=== PATIENT | male | born 1985 | race Asian ===

== ENCOUNTER 2024-05-19 11:52 | Emergency (ER) | payer OTHER ==
[~2024-05-19] VITALS: Ht 180.3 cm; Wt 102.3 kg
[2024-05-19 12:09] VITALS: TEMP 98.4
[2024-05-19 15:12] VITALS: BP 148/106; PULSE 62
== END 2024-05-19 15:15 | disposition home or self-care (01) ==
LOC: COL.ER 11:52
DX: S29.011A Strain of muscle and tendon of front wall of thorax, initial encounter (principal); X50.0XXA Overexertion from strenuous movement or load, initial encounter